=== PATIENT | male | born 1980 | race Caucasian/White ===

== ENCOUNTER 2020-01-16 22:00 | Emergency (ER) | payer SELFPAY ==
[2020-01-16 22:05] VITALS: BP 147/91; RESP 16; TEMP 36.2; O2SAT 99; BMI 26.6
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
[2020-01-16 22:35] VITALS: PULSE 74; RESP 16; O2SAT 99
[2020-01-16] MEDS: cephALEXin 500 mg Capsule PO (22:35)
--- NOTE | 2020-01-17 09:06 | DCPLANNER ---
Addendum entered by Chelsea Ryder 01/17/20 09:15: assistant office manager called patient again, this time was able to speak with patient and gave him appointment information. Original Note: assistant office manager had message to schedule a follow up appointment for patient with Wound Care. assistant office manager called Wound Care, spoke with Sandra, gave clinic patients information. A follow up appointment was scheduled for Tuesday, January 21, 2020 at 8:[address] Keyes. assistant office manager called phone number [phone], unable to speak with patient at this time, and unable to leave a voicemail.
--- NOTE | 2020-01-27 09:39 | DCPLANNER ---
Patient had a follow up appointment scheduled for 01.21.20 with Wound Care - patient did not attend appointment.
== END 2020-01-16 22:37 | disposition home or self-care (01) ==
LOC: ER 22:36
PROVIDERS: Emergency Provider Emergency Medicine
DX: T23.032A Burn of unspecified degree of multiple left fingers (nail), not including thumb, initial encounter (principal); X10.2XXA Contact with fats and cooking oils, initial encounter
CPT/HCPCS: 12345; 99281; 99282; 99283